=== PATIENT | female | born 1990 | race Caucasian/White ===

== ENCOUNTER 2023-09-21 10:18 | Emergency (ER) | payer OTHER, SELFPAY ==
--- NOTE | ~2023-09-21 | CT_ITS ---
EXAMINATION: CT brain wo con, CT facial bones wo con DATE: 09/21/2023 11:24 INDICATION: Fall with head injury and left periorbital swelling TECHNIQUE: 1. Computed tomography (CT) of the head was performed without intravenous contrast. Sagittal and gulshan nal reconstructions were obtained. The mA was adjusted according to patient size. Iterative reconstru ction technique was employed. The dose-length product was 605.33 mGy-cm. 2. CT of the facial bones and maxillofacial region was performed without intravenous contrast. Sagitt al and coronal reconstructions were obtained. Automated exposure control and iterative reconstruction technique were employed. The dose-length product was 284.40 mGy-cm. COMPARISON: Head CT dated 11/18/2018 FINDINGS: Head CT: Small left frontal scalp contusion. No calvarial fracture. No acute intracranial hemorrhage, acute in farction or abnormal extra axial fluid collection. Unchanged small focus of encephalomalacia at the d eep sulcus in the right frontoparietal region likely sequela of old infarct. There is mild scattered white matter hypoattenuation consistent with chronic small vessel ischemic disease. Ventricles are n ormal and symmetric. No mass/mass effect. Maxillofacial CT: There is left periorbital/preseptal soft tissue swelling. Bilateral orbits are otherwise normal with intact appearing globes and no post septal inflammatory stranding. No maxillofacial fractures. Specif ically the zygomatic arches, the mandible, nasal bones and dela cruz of the orbits and paranasal sinuses remain intact. Nasal septum is midline. The mastoid air cells, middle ear cavities and paranasal sinu ses are clear. Minimal upper cervical spondylosis. Large dental caries involving a couple small teeth in the expected position of the left maxillary canine. There is an additional small dental caries at the anterior right maxillary lateral incisor. IMPRESSION: 1. Left periorbital soft tissue swelling with no maxillofacial fractures. 2. No calvarial fracture or acute intracranial process. 3. 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 Reviewed, dictated and finalized at location A. [employer] IMPRESSION: 1. Left periorbital soft tissue swelling with no maxillofacial fractures. 2. No calvarial fracture or acute intracranial process. 3. 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
[2023-09-21 10:22] VITALS: BP 107/66; PULSE 87; RESP 18; TEMP 36.5; O2SAT 100
--- NOTE | 2023-09-21 11:13 | ED.GENADULT ---
HPI - General Adult General Chief complaint: Head Injury Stated complaint: head injury Time Seen by Provider: 09/21/23 10:46 Source: patient and family Mode of arrival: ambulatory Limitations: no limitations History of Present Illness HPI narrative: This is a 33-year-old female with developmental disability who presents to the ED with chief complaint of a fall that occurred 2 days ago. Reports head injury but did not have any LOC. reports that she was going upstairs to visit her brother's house and fell backwards down the stairs. She reports some abrasions to the right hand as she was able to brace her fall. She has no further sites of pain or injury. Denies numbness, weakness, vision change. Related Data Allergies Allergy/AdvReac Type Severity Reaction Status Date / Time No Known Allergies Allergy Unknown Verified 09/21/23 10:26 No Known Allergies Allergy Unknown Uncoded 09/21/23 10:26 Review of Systems Review of Systems: All systems as dictated in HPI Exam Narrative: GENERAL: Well-appearing, well-nourished, and in no acute distress. HEAD: Normocephalic, atraumatic. EYES: PERRLA and EOMI. Mild periorbital bruising and swelling of the left eye. Right eye benign. Vision intact. ENT: Nares clear, no rhinorrhea or epistaxis. Mucous membranes moist. Oropharynx without tonsillar hypertrophy exudate or other lesions. NECK: Supple. No adenopathy or masses. CHEST: No respiratory distress. Clear to auscultation. No wheezes rales or rhonchi HEART: Regular rate and rhythm. No murmur heard. Normal peripheral pulses. ABDOMEN: Soft, nontender, nondistended, normal active bowel sounds. MSK: Normal range of motion. No edema. SKIN: Warm, dry, no rash. NEURO: Alert and oriented x3. No focal deficits. PSYCH: Normal mood and affect. Course Vital Signs Vital signs: Vital Signs Temperature 97.7 F 09/21/23 10:22 Pulse Rate 87 09/21/23 10:22 Respiratory Rate 18 09/21/23 10:22 Blood Pressure 107/66 09/21/23 10:22 Pulse Oximetry 100 09/21/23 10:22 Oxygen Delivery Room Air 09/21/23 10:22 Temperature 97.7 F 09/21/23 10:22 Pulse Rate 78 09/21/23 11:57 Respiratory Rate 18 09/21/23 11:57 Blood Pressure 114/71 09/21/23 11:57 Pulse Oximetry 99 09/21/23 11:57 Oxygen Delivery Room Air 09/21/23 10:22 Medical Decision Making MDM Narrative Medical decision making narrative: This is a 33-year-old female who presents to the ED with chief complaint head injury that occurred over 2 days ago. Vitals are normal. There was no loss of consciousness she is not on blood thinners. She does have a little bit of swelling to the left eye and abrasions to the hand. Vitals are normal. Neuro exam fully intact. She does have slight developmental delay but able to fully cooperate with exam. CT head and face are negative for any acute findings. Symptoms consistent with contusion. Pt will be discharged in stable condition. Return precautions given and supportive measures discussed. Pt is understanding and agreeable with plan for discharge and follow-up with PCP. Vital Signs Vital Signs: Vital Signs Temperature 97.7 F 09/21/23 10:22 Pulse Rate 87 09/21/23 10:22 Respiratory Rate 18 09/21/23 10:22 Blood Pressure 107/66 09/21/23 10:22 Pulse Oximetry 100 09/21/23 10:22 Oxygen Delivery Room Air 09/21/23 10:22 Temperature 97.7 F 09/21/23 10:22 Pulse Rate 78 09/21/23 11:57 Respiratory Rate 18 09/21/23 11:57 Blood Pressure 114/71 09/21/23 11:57 Pulse Oximetry 99 09/21/23 11:57 Oxygen Delivery Room Air 09/21/23 10:22 Discharge Plan Discharge Clinical Impression: Periorbital swelling Patient Disposition: Home, Self-Care Condition: Stable Instructions: Antibiotic Form Additional Instructions: Your exam and imaging today are reassuring. Please use Tylenol and ibuprofen as needed for pain and swelling. If you have any new or worsening sympt
[2023-09-21 11:57] VITALS: BP 114/71; PULSE 78; RESP 18; O2SAT 99
== END 2023-09-21 11:59 | disposition home or self-care (01) ==
PROVIDERS: Emergency Provider Physician Assistant; PCP Family Medicine
DX: S05.12XA Contusion of eyeball and orbital tissues, left eye, initial encounter (principal); S60.511A Abrasion of right hand, initial encounter; W10.9XXA Fall (on) (from) unspecified stairs and steps, initial encounter
CPT/HCPCS: 70450; 70486; 99284

== ENCOUNTER 2024-08-09 11:00 | Outpatient (RCR) | payer OTHER, SELFPAY ==
--- NOTE | 2024-07-02 11:02 | OPREHPOC ---
Outpatient Therapy Plan of Care This is a Multidisciplinary Plan of Care that may contain components documented by all disciplines (PT, OT, and ST.) PT Problem 1 PT Problem #1 Knowledge Deficit PT Goal 1 Goal / Goal Update *education to pt and mom for HEP Target Visit 10 PT Problem 2 PT Problem #2 Impaired Strength PT Goal 1 Goal / Goal Update increase trunk and hip strength to improve gait balance and walking ability 1* R and L LE mat exercises x 20 reps single leg standing x 6 seconds 2* R 3* L Target Visit 10 PT Problem 3 PT Problem #3 Impaired Functional Mobility PT Goal 1 Goal / Goal Update improve dynamic and static standing balance, to improve mobility and safety/to prevent falls 1* TUG 16 seconds 2* 2 minute walking test distance of 350' 3* 2 minute walking test without stopping due to loss of balance 4* Espino balance score of 51/56 5* pt & mom report no falls Target Visit 10
--- NOTE | 2024-07-02 11:02 | PTOPEVAL1 ---
Assessment and note entered by Corrine Keene, PT Evaluation Information Assessment Status Evaluation ICD-10 Condition Codes (PT) Repeated falls R29.6,R26.9,Weakness R53.1 Other ICD-10 Condition Codes ( Z91.81= history of falls, increase risk for falls PT) Onset December 2023 Subjective Information in the past 6 months have had more falls; timing of meds may have been an issue-- was getting bed time meds several hours before meds and falling after taking them; now--take meds right before going to bed; have caregiver, Elmo- her brother, who is there daily to help pt, they do some supine and sitting exercises from previous therapy; bathing and dressing with assist of mom; lives with her mom; one step into home; have had PT in the past, but has been awhile; Goal: get stronger, walk better; Reported Pain Level Pain Score 0: Self Report Assessment PT Clinical Summary Marah has the diagnosis of falls. She has seizures and developmental disability- functioning at 3rd grade level. She lives at home with her mom and brother stays with her during the day. She has bilateral AFO's. With the evaluation: she has decreased strength of R and L hip extension, ER and abduction motions poor gait pattern with lateral motion of her trunk to advance LE's, bilateral hip IR and staggered stepping; 2 minute walking test distance of 310' with loss of balance- regain indep 3x with stopping walking; TUG 19 seconds; Espino balance score of 41/56- at risk for falls. MomNena was present during eval and supportive to pt. Skilled PT services are indicated to increase trunk and hip strength, to improve walking pattern ability and safety, to decrease risk for falls and education for HEP and gait pattern. Plan of Care Interventions Gait Training,Neuro Re-education,Patient & mom Education,Therapeutic Activities,Therapeutic Exercise PT Services Indicated Yes Treatment Frequency and 1-2x/wk for 10 visits Duration These treatments will address the objective and functional deficits as defined above. The patient will be advanced safely and appropriately in order for the patient to progress towards his/her prior level of function. Additional exercises will be introduced and as well as a comprehensive home exercise program upon discharge, if needed, ?to ensure carryover of functional gains achieved in the clinic. This treatment plan has been reviewed and agreement upon by the patient.
--- NOTE | 2024-07-10 13:29 | PCPTNOTE ---
Called and canceled , reason unknown. AKS
--- NOTE | 2024-07-17 13:08 | PCPTNOTE ---
No call no show, reason unknown. Called and left mss with mother Nena offered afternoon option. AKS
--- NOTE | 2024-07-24 11:00 | PCPTNOTE ---
Pt canceled due to illness.
--- NOTE | 2024-08-09 11:40 | PTOPDC ---
Assessment and note entered by Corirne Keene, PT Discharge Report Assessment Status Discharge ICD-10 Condition Codes (PT) Repeated falls R29.6,R26.9,Weakness R53.1 Other ICD-10 Condition Codes ( Z91.81= history of falls, increase risk for falls PT) Onset December 2023 Subjective Information pt and mom report: have been doing the exercises at home; like doing the bicycle here; had one fall- pulled self up on a chair; they are working on meds for her seizures and her implant battery is low; Reported Pain Level Pain Score 0: Self Report Assessment PT Clinical Summary Marah has received 9 PT sessions. Compared to the initial evaluation: increase strength of R and L LE with mat exercises to 20 reps; TUG from 19 to 16 seconds; 2 minute walking test distance from 310' with 3 loss of balance, to 350', without any loss of balance; Espino balance score from 41 to 46/56; she did have one fall since starting therapy, walking through a threshold of doorway, tripped and fell; education for HEP completed. The goals were partially achieved. Discharge PT services. She is to continue with her HEP, with assist of her caregiver. Plan of Care PT Services Indicated No
== END 2024-08-09 15:02 | disposition home or self-care (01) ==
LOC: ANHPT 11:00
PROVIDERS: PCP Family Medicine; Visit Provider Family Medicine
DX: R26.89 Other abnormalities of gait and mobility (principal); M62.81 Muscle weakness (generalized); Z91.81 History of falling; R29.6 Repeated falls
CPT/HCPCS: 97110; 97112; 97116; 97161; 97530